=== PATIENT | male | born 1955 | race Caucasian/White ===

== ENCOUNTER → 2016-08-28 | Outpatient (CLI) | payer OTHER ==
[2016-08-28 14:49] LABS: CALCIUM 9.3 mg/dl (8.5-10.1)
[2016-08-28 14:50] LABS: ALT/SGPT 28 U/L (12-78); BLOOD UREA NITROGEN 19 mg/dl (7-18); BUN/CREATININE RATIO 13.6 (10-20); CARBON DIOXIDE 26 mmol/L (21-32); CHLORIDE 105 mmol/L (98-107); GLUCOSE 138 mg/dl (70-99); POTASSIUM 4.4 mmol/L (3.5-5.1); SODIUM 140 mmol/L (136-145)
[2016-08-28 14:52] LABS: CHOLESTEROL 187 mg/dl (0-200); CHOLESTEROL/HDL RATIO 6.2; HDL CHOLESTEROL 30 mg/dl; TRIGLYCERIDES 296 mg/dl (0-150); VERY LOW DENSITY LIPOPROT CALC 59 mg/dl
== END | disposition home or self-care (01) ==
LOC: C.LABMFLN 07:12
PROVIDERS: ATTEND Family Medicine
DX: E78.00 Pure hypercholesterolemia, unspecified (principal)

== ENCOUNTER → 2016-10-05 | Outpatient (CLI) | payer BC | END | disposition home or self-care (01) | LOC: C.LABMFLN 10:31 | PROVIDERS: ATTEND Family Medicine | DX: M1A.9XX0 Chronic gout, unspecified, without tophus (tophi) (principal) ==

== ENCOUNTER → 2017-02-12 | Outpatient (CLI) | payer BC ==
[2017-02-12 13:14] LABS: ESTIMATED AVERAGE GLUCOSE 120 mg/dl; HA1C FLAG Normal (Normal)
[2017-02-12 13:26] LABS: BLOOD UREA NITROGEN 16 mg/dl (7-18); BUN/CREATININE RATIO 13.6 (10-20); CALCIUM 9.3 mg/dl (8.5-10.1); CARBON DIOXIDE 24 mmol/L (21-32); CHLORIDE 103 mmol/L (98-107); CREATININE 1.18 mg/dl (0.60-1.40); GLUCOSE 119 mg/dl (70-99); POTASSIUM 4.1 mmol/L (3.5-5.1); SODIUM 136 mmol/L (136-145); URIC ACID 3.3 mg/dl (2.6-7.2)
[2017-02-12 16:18] LABS: ALT/SGPT 25 U/L (12-78); CHOLESTEROL 178 mg/dl (0-200); CHOLESTEROL/HDL RATIO 4.5; HDL CHOLESTEROL 40 mg/dl; TRIGLYCERIDES 174 mg/dl (0-150); VERY LOW DENSITY LIPOPROT CALC 35 mg/dl
== END | disposition home or self-care (01) ==
LOC: C.LABMFLN 08:13
PROVIDERS: ATTEND Family Medicine
DX: E78.00 Pure hypercholesterolemia, unspecified (principal); I10 Essential (primary) hypertension; M1A.9XX0 Chronic gout, unspecified, without tophus (tophi); R73.01 Impaired fasting glucose

== ENCOUNTER 2021-11-03 18:18 | Inpatient (IN) ==
[2021-11-03 19:08] LABS: Basophils # (auto) 0.06 K/uL (0-0.2); Basophils % (auto) 0.5 %; Eosinophils # (auto) 0.09 K/uL (0-0.50); Eosinophils % (auto) 0.7 %; Hematocrit (blood only) 49.7 % (40.1-51.0); Immature Granulocytes # (auto) 0.06 K/uL (0.00-0.02); Immature Granulocytes % (auto) 0.5 %; Lymphocytes # (auto) 1.34 K/uL (1.2-3.4); Lymphocytes % (auto) 10.9 %; Mean Corpuscular Hemoglobin 30.9 pg (25.0-34.0); Mean Corpuscular Hgb Conc 34.2 g/dL (32.0-36.0); Mean Corpuscular Volume 90.4 fL (80.0-100.0); Mean Platelet Volume 11.2 fL (9.4-12.4); Monocytes # (auto) 0.54 K/uL (0.24-0.82); Monocytes % (auto) 4.4 %; Neutrophils # (auto) 10.26 K/uL (1.4-6.5); Platelet Count 275 K/uL (130-400); RDW Coefficient of Variation 13.1 % (11.5-14.5); RDW Standard Deviation 43.1 fL (36.4-46.3); White Blood Count 12.35 K/ul (4.8-10.8)
[2021-11-03] MEDS ORDERED: ONDANSETRON INJ 2 MG/ML 2 ML VIAL IV STA (19:19)
[2021-11-03 19:27] LABS: Albumin Globulin Ratio 1.4 (0.9-2); Albumin Level 4.8 gm/dl (3.4-5.0); BUN Creatinine Ratio 11.3 (10-20); Calcium 10.4 mg/dl (8.5-10.1); Creatinine Clr Calc Pharmacy 62.2 ml/min; Est GFR (African American) 59.7 ml/min; Est GFR (Non-African American) 51.5 ml/min; Globulin 3.4 gm/dl (2.5-4.0); Potassium 4.6 mmol/L (3.5-5.1); Total Protein 8.2 gm/dl (6.0-8.3)
[2021-11-03] MEDS ORDERED: SODIUM CHLORIDE 0.9% 1000ML 1,000 ML IV ONE (21:10)
[2021-11-03] MEDS ORDERED: fentaNYL citrate 100 MCG/2 ML VIAL IV PRN (21:22)
[2021-11-03 21:23] LABS: Appearance Urine Clear (Clear); Bacteria Urine Automated Negative (Negative); Bilirubin Urine Negative (Negative); Blood Urine Negative (Negative); Color Urine Dark Yellow; Glucose Urine UA Negative (Negative); Ketones Urine 1+ (Negative); Leukocyte Esterase Urine Negative (Negative); Nitrite Urine Negative (Negative); Protein Urine 1+ (Negative); RBC Urine Automated 0-4 /hpf (0-4); Specific Gravity Urine 1.029 (1.000-1.030); Urobilinogen Urine Negative (Negative); pH Urine 5.5 (4.5-7.5)
--- NOTE | 2021-11-03 21:29 | Emergency Department Note ---
Impression & Plan Partial obstruction of small intestine, Abdominal pain, Vomiting ED Provider Note NAME: SADIA BARROS AGE: 66 SEX: M : 1955 ARRIVES VIA: Walk-In INFORMANT: Patient, ED PROVIDER(S): Zackary Rodriguez DO CHIEF COMPLAINT: Abdominal pain HPI: Patient is a 66-year-old male who presented to the emergency department for an evaluation of abdominal pain. The patient states he has noticed abdominal pain over the course the last 2 to 3 days. Initially he noticed the pain is upper abdominal pain. He states the pain has started to go lower into his abdomen. He notices no fever. He notices no back pain or chest pain. He did note nausea as well as vomiting. After the emesis he did feel better. He denies having any recent trauma. He is not been seen by his family doctor as the symptoms only began over the last few days. The patient was given IV Zofran via protocol prior to my evaluation and states his symptoms are significantly improved. ROS: See above HPI for pertinent positives & negatives. A total of 10 systems reviewed and were otherwise negative. PAST MEDICAL HISTORY: See Below PAST SURGICAL HISTORY: See Below FAMILY HISTORY: See Below SOCIAL HISTORY: See Below HOME MEDICATIONS: See Below ALLERGIES: See Below VITALS: See Below PHYSICAL EXAMINATION: GENERAL: Patient is awake alert in no acute distress patient is resting comfortably and showing no signs of anxiety EYES: The conjunctivae are clear. The pupils are round and reactive. EARS, NOSE, MOUTH AND THROAT: The nose is without any evidence of any deformity. Mucous membranes are moist. Tongue is midline. NECK: The neck is nontender and supple. RESPIRATORY: Normal respiratory effort is noted there is no evidence of wheezing rhonchi or rales CARDIOVASCULAR: Regular rate and rhythm noted there no murmurs rubs or gallops normal S1 normal S2. GASTROINTESTINAL: Abdomen is distended. There is diffuse tenderness to palpation especially in the right lower quadrant. There is no guarding or rigidity. MUSCULOSKELETAL/EXTREMITIES: There is no evidence of gross deformity full range of motion is noted in the hips and shoulders. SKIN: There is no obvious evidence of any rash. There are no petechiae, pallor or cyanosis noted. NEUROLOGIC: Patient is awake alert and oriented x3 MEDICAL DECISION MAKING: Patient is a 66-year-old male who presented to the emergency department for an evaluation of abdominal pain. The patient had episodes of emesis which improved his abdominal pain. I discussed the patient's laboratory and radiographic studies with him. He was treated with IV fluids and IV pain medication in the emergency department. He was feeling much better on subsequent reevaluation. He has no surgical history but does have a history of diverticulitis in the past. He was treated with IV antibiotics. I discussed his condition with the on-call [facility] hospitalist group. They have agreed to evaluate the patient in the emergency department for further management and disposition. Triage Nursing notes reviewed. Prior medical records reviewed Vital Signs: reviewed and remarkable for no significant abnormalities Differential diagnosis: Etiologies such as appendicitis, diverticulitis, obstruction, inflammatory bowel disease, renal colic, PUD, biliary pathology, pancreatitis, mesenteric ischemia, aortic pathology, infections, genitourinary, UTI, perforated viscus, as well as others were entertained. ER treatment provided: See below Diagnostics interpreted by me: ECG: KG was obtained in the emergency department. My interpretation is sinus rhythm at 69 bpm. PVCs were noted. There was no acute ST segment abnormalities noted. No previous tracing was available. Cardiac Monitoring: An order was placed for continuous cardiac monitoring. The monitor shows a rate of 83 bpm with sinus rhythm. Laboratory studies: As stated above and show below. Imaging studies: See below Consultation(s): Dr. Roman was notified about the patient. He will evaluate the patient in the emergency department. Past Med/Surg History Medical History AC (acromioclavicular) joint arthritis Anxiety Borderline diabetes Chronic gout Diverticular disease Gout Hyperlipidemia Hypertension Kidney stones PASSED Osteoarthritis Sigmoid diverticulitis Surgical History History of colonoscopy (~2013) History of tooth extraction Hx of toe surgery 40 YRS AGO Family History Mother Diabetes Grandmother (Paternal) Diabetes Grandmother (Maternal) Diabetes Father Esophageal cancer Social History Smoking Status: Never smoker Second Hand Exposure: Yes ( KID); Hx Alcohol Use: Yes Alcohol type: beer, wine and hard liquor Hx Substance Use: No Preferred Language: Citizen Of [place] Communication Ability: Effective Machine Splitter Required: No Beliefs That Will Affect Care: None Current Living Situation: Spouse Feels Safe at Home: Yes Assistive Devices: Glasses Allergies Allergies Allergy/AdvReac Type Severity Reaction Status Date / Time No Known Drug Allergies Allergy Verified 06/30/21 10:26 Home Meds Home Medications Medication Instructions Recorded Confirmed aspirin 81 mg tablet,delayed 81 mg PO QAM 01/09/19 10/26/21 release (Aspir-) Previous Rx's Medication Instructions Recorded losartan 25 mg tablet See Rx Instructions .Route 11/28/20 .COMPLEX #90 tabs tadalafil 20 mg tablet (Cialis) 20 mg PO .1 hour before sexual PRN 12/16/20 sexual activity #20 tabs sildenafil 100 mg tablet 100 mg PO DAILY PRN sexual 01/06/21 activity #10 tabs semaglutide 0.25 mg or 0.5 mg (2 0.5 mg (0.4 mL) subcut .once a 05/02/21 mg/1.5 mL) subcutaneous pen week #18 mL injector (Ozempic) allopurinol 100 mg tablet See Rx Instructions .Route 06/19/21 .COMPLEX #180 tabs sertraline 50 mg tablet 25 mg PO DAILY #90 tabs 06/19/21 atorvastatin 10 mg tablet 10 mg PO .every Mon,Wed and Fr #45 08/22/21 tabs Results & Data (ED) Vital Signs Vital Signs - 24 hr 11/03/21 18:28 11/03/21 21:07 11/03/21 22:52 Temperature 36.5 C 36.9 C Temperature Source Temporal Artery Scan Oral Pulse Rate 79 Pulse Rate [Apical] 75 83 Respiratory Rate 18 18 18 Respiratory Effort / Characteristics Non-Labored Spontaneous Non-Labored Spontaneous Non-Labored Spontaneous Respiratory Depth Normal Normal Normal Respiratory Pattern Regular Regular Regular Blood Pressure 134/78 Blood Pressure [Right Arm] 136/115 H 134/78 Blood Pressure Mean 96 Blood Pressure Mean [Right Arm] 122 96 Blood Pressure Position Sitting Blood Pressure Position [Right Arm] Semi-fowlers Pulse Oximetry 97 98 95 Oxygen Delivery Method Room Air Room Air Room Air Sepsis Recent Fever Within 48 Hours No Sepsis New/Unexplained Change in Mental Status No Sepsis Action Taken by Nursing No Action Required Home Medications Current Medication List: was personally reviewed by me Laboratory Data Attestation: I reviewed the patient's lab results. Result diagrams: 11/03/21 18:55 11/03/21 18:55 Lab Results 11/03/21 11/03/21 11/03/21 Range/Units 18:55 18:55 18:55 WBC 12.35 H (4.8-10.8) K/ul RBC 5.50 (4.63-6.08) M/uL Hgb 17.0 (14.0-18.0) g/dl Hct 49.7 (40.1-51.0) % MCV 90.4 (80.0-100.0) fL MCH 30.9 (25.0-34.0) pg MCHC 34.2 (32.0-36.0) g/dL RDW Std Deviation 43.1 (36.4-46.3) fL RDW Coeff of Heladio 13.1 (11.5-14.5) % Plt Count 275 (130-400) K/uL MPV 11.2 (9.4-12.4) fL Immature Gran % (Auto) 0.5 % Neut % (Auto) 83.0 % Lymph % (Auto) 10.9 % [place] % (Auto) 4.4 % Eos % (Auto) 0.7 % Baso % (Auto) 0.5 % Neut # (Auto) 10.26 H (1.4-6.5) K/uL Lymph # (Auto) 1.34 (1.2-3.4) K/uL [place] # (Auto) 0.54 (0.24-0.82) K/uL Eos # (Auto) 0.09 (0-0.50) K/uL Baso # (Auto) 0.06 (0-0.2) K/uL Immature Gran # (Auto) 0.06 H (0.00-0.02) K/uL Sodium 137 (136-145) mmol/L Potassium 4.6 (3.5-5.1) mmol/L Chloride 99 (98-107) mmol/L Carbon Dioxide 29 (21-32) mmol/L Anion Gap 9 (3-11) BUN 16 (6-23) mg/dl Creatinine 1.41 H (0.6-1.4) mg/dl Est Cr Clr Drug Dosing 62.2 ml/min Est GFR ( Amer) 59.7 ml/min Est GFR (Non-Af Amer) 51.5 ml/min BUN/Creatinine Ratio 11.3 (10-20) Glucose 149 H (70-99(Fasting)) mg/dl Calcium 10.4 H (8.5-10.1) mg/dl Total Bilirubin 1.0 (0.2-1.0) mg/dl AST 24 (13-39) U/L ALT 30 (7-52) U/L Alkaline Phosphatase 97 (34-104) U/L Troponin I High Sens 3.6 (0-20) pg/ml Total Protein 8.2 (6.0-8.3) gm/dl Albumin 4.8 (3.4-5.0) gm/dl Globulin 3.4 (2.5-4.0) gm/dl Albumin/Globulin Ratio 1.4 (0.9-2) Lipase 24 (11-82) U/L Urine Color Urine Appearance (Clear) Urine pH (4.5-7.5) Ur Specific [place] (1.000-1.030) Urine Protein (Negative) Urine Glucose (UA) (Negative) Urine Ketones (Negative) Urine Blood (Negative) Urine Nitrite (Negative) Urine Bilirubin (Negative) Urine Urobilinogen (Negative) Ur Leukocyte Esterase (Negative) Urine WBC (Auto) (0-5) /hpf Urine RBC (Auto) (0-4) /hpf U Hyaline Cast (Auto) (0-5) /lpf U Epithel Cells (Auto) (0-5) /lpf Urine Bacteria (Auto) (Negative) SARS-CoV-2, RNA, NAAT (NEGATIVE) 11/03/21 11/03/21 Range/Units 21:03 22:46 WBC (4.8-10.8) K/ul RBC (4.63-6.08) M/uL Hgb (14.0-18.0) g/dl Hct (40.1-51.0) % MCV (80.0-100.0) fL MCH (25.0-34.0) pg MCHC (32.0-36.0) g/dL RDW Std Deviation (36.4-46.3) fL RDW Coeff of Heladio (11.5-14.5) % Plt Count (130-400) K/uL MPV (9.4-12.4) fL Immature Gran % (Auto) % Neut % (Auto) % Lymph % (Auto) % [place] % (Auto) % Eos % (Auto) % Baso % (Auto) % Neut # (Auto) (1.4-6.5) K/uL Lymph # (Auto) (1.2-3.4) K/uL [place] # (Auto) (0.24-0.82) K/uL Eos # (Auto) (0-0.50) K/uL Baso # (Auto) (0-0.2) K/uL Immature Gran # (Auto) (0.00-0.02) K/uL Sodium (136-145) mmol/L Potassium (3.5-5.1) mmol/L Chloride (98-107) mmol/L Carbon Dioxide (21-32) mmol/L Anion Gap (3-11) BUN (6-23) mg/dl Creatinine (0.6-1.4) mg/dl Est Cr Clr Drug Dosing ml/min Est GFR ( Amer) ml/min Est GFR (Non-Af Amer) ml/min BUN/Creatinine Ratio (10-20) Glucose (70-99(Fasting)) mg/dl Calcium (8.5-10.1) mg/dl Total Bilirubin (0.2-1.0) mg/dl AST (13-39) U/L ALT (7-52) U/L Alkaline Phosphatase (34-104) U/L Troponin I High Sens (0-20) pg/ml Total Protein (6.0-8.3) gm/dl Albumin (3.4-5.0) gm/dl Globulin (2.5-4.0) gm/dl Albumin/Globulin Ratio (0.9-2) Lipase (11-82) U/L Urine Color Dark Yellow Urine Appearance Clear (Clear) Urine pH 5.5 (4.5-7.5) Ur Specific [place] 1.029 (1.000-1.030) Urine Protein 1+ H (Negative) Urine Glucose (UA) Negative (Negative) Urine Ketones 1+ H (Negative) Urine Blood Negative (Negative) Urine Nitrite Negative (Negative) Urine Bilirubin Negative (Negative) Urine Urobilinogen Negative (Negative) Ur Leukocyte Esterase Negative (Negative) Urine WBC (Auto) 1-5 (0-5) /hpf Urine RBC (Auto) 0-4 (0-4) /hpf U Hyaline Cast (Auto) 1-5 (0-5) /lpf U Epithel Cells (Auto) 5-10 H (0-5) /lpf Urine Bacteria (Auto) Negative (Negative) SARS-CoV-2, RNA, NAAT NEGATIVE (NEGATIVE) Administered Medications Discontinued Medications Sodium Chloride (Nss 1000ml) 1,000 mls @ 999 mls/hr IV .Q1H1M ONE Stop: 11/03/21 22:10 Last Infusion: 11/03/21 22:31 Dose: 0 mls/hr Documented By: Admin: 11/03/21 21:30 Dose: 999 mls/hr Documented By: [facility] Piperacillin Sod/Tazobactam Sod (Zosyn) 4.5 gm in 120 mls @ 240 mls/hr IV NOW ONE Stop: 11/03/21 23:26 Last Admin: 11/03/21 23:44 Dose: 240 mls/hr Documented By: [facility] Ioversol (Optiray 300 100ml) 94 ml IV ONCE ONE Stop: 11/03/21 21:57 Last Admin: 11/03/21 21:59 Dose: 94 ml Documented By: [facility] Ondansetron HCl (Ondansetron Inj 2 Mg/Ml 2 Ml Vial) 4 mg IV NOW STA Stop: 11/03/21 19:20 Last Admin: 11/03/21 19:23 Dose: 4 mg [place]ed [place]: [facility] [place] Data Radiologist's Impression: Abdomen/Pelvis CT 11/03/21 21:22 CT abd pelvis IV con only CLINICAL HISTORY: lower pain TECHNIQUE: Helical axial images of the abdomen and pelvis were obtained and displayed. Automated dose lowering techniques and/or adjustment according to patient size were utilized for this exam. This exam was performed with intravenous contrast. CT DOSE: 1205.76 mGy.cm COMPARISON: None available at the time of this dictation. FINDINGS: Lower chest: Bibasilar atelectasis versus scarring is seen. Liver: Unremarkable. No focal lesions are seen. Gallbladder and biliary tree: No calcified gallstones. Normal caliber wall. No intra- or extrahepatic biliary ductal dilation. Pancreas: Unremarkable, no focal lesions. Spleen: Unremarkable. Adrenals: Unremarkable. Kidneys and ureters: There is a right renal cyst. Bladder: Unremarkable. Reproductive organs: Unremarkable. Bowel: Diverticulosis is seen without evidence of diverticulitis. The ileum and colon is under distended. The appendix is normal. Multiple dilated loops of sm all bowel are seen measuring up to 33 mm in diameter. There is prominent vascularity noted. No sharp transition point is seen. Lymph nodes Retroperitoneal: Unremarkable. Pelvic: Unremarkable. Mesenteric: Unremarkable. Peritoneum: Normal. Vessels: Mild atherosclerotic calcifications are seen. Abdominal wall: Bilateral fat-containing inguinal hernias are seen. Bones: Degenerative changes in the visualized spine. Prominent bone spur is noted in the left hip joint. IMPRESSION: Dilated loops of bowel in the left lower quadrant with vascular prominence, but without sharp transition points. The colon and ileum are under distended. Findings with partial small bowel obstruction. ACT 112: Negative or not required by law. Electronically signed by: Benedict Schumacher M.D. 11/03/2021 10:29 PM Discharge Plan Visit Data Chief Complaint: Abdominal Pain Stated Complaint: ABDOMINAL PAIN ED Provider: Zackary Rodriguez Discharge Problem: Partial obstruction of small intestine, Abdominal pain, Vomiting Patient Disposition: Being Evaluated by Hospitalist Forms Stand Alone Forms: [facility] Prescriptions Prescriptions: No Action losartan 25 mg tablet See Rx Instructions .ROUTE .COMPLEX Qty: 90 3RF Dose Instruction: TAKE 1 TABLET DAILY Rx Instructions: TAKE 1 TABLET DAILY sildenafil 100 mg tablet 100 mg PO DAILY PRN (Reason: sexual activity) Qty: 10 2RF Rx Instructions: administer 30 minutes to 4 hours before activity Ozempic 0.25 mg or 0.5 mg(2 mg/1.5 mL) pen injector 0.5 mg subcut .once a week Qty: 18 2RF Rx Instructions: 0.4 ml SQ weekly sertraline 50 mg tablet 25 mg PO DAILY Qty: 90 1RF allopurinol 100 mg tablet See Rx Instructions .ROUTE .COMPLEX Qty: 180 3RF Dose Instruction: TAKE 2 TABLETS (200 MG) EVERY MORNING Rx Instructions: TAKE 2 TABLETS (200 MG) EVERY MORNING atorvastatin 10 mg tablet 10 mg PO .every Mon,Wed and Fr Qty: 45 3RF tadalafil [Cialis] 20 mg tablet 20 mg PO .1 hour before sexual PRN (Reason: sexual activity) Qty: 20 2RF Rx Instructions: administer approximately 30min before sexual activity; do not use more than 1 dose per 24hrs Pneumovax-23 25 mcg/0.5 mL syringe 0.5 ml IM ONCE Qty: 0.5 0RF aspirin [Aspir-81] 81 mg Tablet,Delayed Release (Dr/Ec) 81 mg PO QAM Referrals Referrals: Julio Olson MD [Primary Care Provider] -
[2021-11-03] MEDS ORDERED: OPTIRAY 300 100mL IV ONE (21:56)
--- NOTE | 2021-11-03 22:31 | CT Scan Report ---
CT abd pelvis IV con only CLINICAL HISTORY: lower pain TECHNIQUE: Helical axial images of the abdomen and pelvis were obtained and displayed. Automated dose lowering techniques and/or adjustment according to patient size were utilized for this exam. This e xam was performed with intravenous contrast. CT DOSE: 1205.76 mGy.cm COMPARISON: None available at the time of this dictation. FINDINGS: Lower chest: Bibasilar atelectasis versus scarring is seen. Liver: Unremarkable. No focal lesions are seen. Gallbladder and biliary tree: No calcified gallstones. Normal caliber wall. No intra- or extrahepatic biliary ductal dilation. Pancreas: Unremarkable, no focal lesions. Spleen: Unremarkable. Adrenals: Unremarkable. Kidneys and ureters: There is a right renal cyst. Bladder: Unremarkable. Reproductive organs: Unremarkable. Bowel: Diverticulosis is seen without evidence of diverticulitis. The ileum and colon is under disten ded. The appendix is normal. Multiple dilated loops of small bowel are seen measuring up to 33 mm in diameter. There is prominent vascularity noted. No sharp transition point is seen. Lymph nodes Retroperitoneal: Unremarkable. Pelvic: Unremarkable. Mesenteric: Unremarkable. Peritoneum: Normal. Vessels: Mild atherosclerotic calcifications are seen. Abdominal wall: Bilateral fat-containing inguinal hernias are seen. Bones: Degenerative changes in the visualized spine. Prominent bone spur is noted in the left hip jillian nt. IMPRESSION: Dilated loops of bowel in the left lower quadrant with vascular prominence, but without sharp transit ion points. The colon and ileum are under distended. Findings with partial small bowel obstruction. ACT 112: Negative or not required by law. Electronically signed by: Benedict Schumacher M.D. 11/03/2021 10:29 PM
[2021-11-03] MEDS ORDERED: PIPERACILLIN/TAZOBACTAM 4.5 GM/120 ML BAG IV ONE (22:57)
--- NOTE | 2021-11-03 23:40 | History & Physical Report ---
Date of Service November 03, 2021 Assessment & Plan (1) Partial obstruction of small intestine: Plan: 66 y/o male w/ PMHx of DM2, HLD, CKD3, HTN who presents w/ mid to lower abd pain since 2 days ago, most likely from partial SBO. - no prior hx of surgeries - has had diverticulitis x2 in past. no evidence of this on current CT abd - NPO for now, advance diet as tolerated - received dose of IV Zosyn in ED; no indication to continue at this time (2) Diabetes mellitus: Plan: -06/29/21 a1c 6.5 - hold home Ozempic (recieves every Saturday) - check BSG achs, but defer ordering insulin as patient A1c appears well controlled and he is only on Ozempic (previous week's injection still active) (3) CKD stage 3 due to type 2 diabetes mellitus: Plan: - chronic, stable, follow bmp. avoid nephrotoxic agents (4) Anxiety and depression: Plan: - chronic, stable, continue home sertraline (5) Benign essential hypertension: Plan: - chronic, stable, continue home losartan (6) HLD (hyperlipidemia): Plan: - chronic, stable, continue home atorvastatin 10 (7) Severe obstructive sleep apnea: Plan: - continue home cpap qhs 11cm h2o (8) Itching: Plan: - mild, resolved. provided 1 dose of PO benadryl. not considering true allergy to Zosyn. Plan FEN/GI: NPO. No IV fluids ordered. ppx: Lovenox code: full dispo: med tele History of Present Illness Chief Complaint: SBO Primary Care Provider: Julio Olson MD 66 y/o male w/ PMHx of DM2, HLD, CKD3, HTN who presents w/ mid to lower abd pain since 2 days ago. Intermittent, minutes apart and would come in waves. Worse in evening. This AM, felt ok. Ate small breakfast. Had pains all afternoon after a big lunch. Had emesis x1, w/o relief of the pain. Had another episode of emesis in the ED waiting room. Currently, pain level 1.5/10, much improved from earlier. Denies hx of similar. States had diverticulitis x2 in past, treated as outpatient. Denies hx of abd surgeries. Intermittent chills. No fever. No chest pain, SOB. Mild constipation x 2-3 days, more straining and decreased amount. Had large BM 2 days ago. + mildly increased burping. No flatus x few days. ED course: 1L NSS. Zosyn. wbc 12.35. Hb stable 17.0. BMP ok. Cr 1.41, at ba seline. Ca 10.4H. UA w/o suggestion of infection. ecg rate 69 w/ freq pvcs. qtc 409. ct abd/pelv IV con: Dilated loops of bowel in the left lower quadrant with vascular prominence, but without sharp transition points. The colon and ileum are under distended. Findings with partial small bowel obstruction. Allergies Allergy/AdvReac Type Severity Reaction Status Date / Time No Known Drug Allergies Allergy Verified 06/30/21 10:26 Home Medications Medication Instructions Recorded Confirmed Type aspirin 81 mg tablet,delayed 81 mg PO QAM 01/09/19 10/26/21 History release (Aspir-) losartan 25 mg tablet See Rx Instructions .Route 11/28/20 10/26/21 Rx .COMPLEX #90 tabs tadalafil 20 mg tablet (Cialis) 20 mg PO .1 hour before sexual PRN 12/16/20 10/26/21 Rx sexual activity #20 tabs sildenafil 100 mg tablet 100 mg PO DAILY PRN sexual 01/06/21 10/26/21 Rx activity #10 tabs semaglutide 0.25 mg or 0.5 mg (2 0.5 mg (0.4 mL) subcut .once a 05/02/21 10/26/21 Rx mg/1.5 mL) subcutaneous pen week #18 mL injector (Ozempic) allopurinol 100 mg tablet See Rx Instructions .Route 06/19/21 10/26/21 Rx .COMPLEX #180 tabs sertraline 50 mg tablet 25 mg PO DAILY #90 tabs 06/19/21 10/26/21 Rx atorvastatin 10 mg tablet 10 mg PO .every Mon,Wed and Fr #45 08/22/21 10/26/21 Rx tabs Past Med/Surg History Medical History AC (acromioclavicular) joint arthritis Anxiety Borderline diabetes Chronic gout Diverticular disease Gout Hyperlipidemia Hypertension Kidney stones PASSED Osteoarthritis Sigmoid diverticulitis Surgical History History of colonoscopy (~2013) History of tooth extraction Hx of toe surgery 40 YRS AGO Family History Mother Diabetes Grandmother (Paternal) Diabetes Grandmother (Maternal) Diabetes Father Esophageal cancer Social History (Updated 11/04/21 @ 01:54 by Ferny Gage MD) Smoking Status: Never smoker Tobacco Type: Smokeless Tobacco (Dip or Chew) Number of Years Since Quit: 20; Second Hand Exposure: No; Do You Dip or Chew Tobacco: No; Tobacco Cessation Education Requested by Patient: No Hx Alcohol Use: Yes Alcohol type: beer Hx Substance Use: No Preferred Language: Bengali Communication Ability: Effective Supervisor Molding Required: No Beliefs That Will Affect Care: None Current Living Situation: Spouse and Family Other Information That Helps Us Care for You: No Feels Safe at Home: Yes Safety Concerns: Feels Safe At This Time Assistive Devices: CPAP and Glasses Review of Systems Review of Systems: All systems reviewed & are unremarkable except as noted in HPI & below Slight itch at extremities since starting abx. mild rash, resolved. Physical Exam Physical Exam: General: Grossly A&O. NAD. Cooperative. HEENT: Atraumatic, normocephalic. EOMI. No LAD. Pulm: CTAB. -wheezes, -rales, -rhonchi. No respiratory distress. Cardiac: RRR, -mrg. Radial pulses intact and symmetrical. No LE edema. Abdominal: Nondistended, soft. Mild ttp above umbilicus. Slightly hypoactive BS. Msk: all extrem. Integ: No visible rash. Results & Data Results & Data ([facility]) Vital Signs (Past 12 Hours) Vital Signs Temp Pulse Pulse Resp BP BP Pulse Ox 11/03/21 22:52 83 18 134/78 95 11/03/21 21:07 36.9 C 75 18 136/115 H 98 11/03/21 18:28 36.5 C 79 18 134/78 97 O2 Del Method 11/03/21 22:52 Room Air 11/03/21 21:07 Room Air 11/03/21 18:28 Room Air Laboratory Results Cardiac Enzymes 11/03/21 11/03/21 Range/Units 18:55 18:55 AST 24 (13-39) U/L Troponin I High Sens 3.6 (0-20) pg/ml CBC 11/03/21 Range/Units 18:55 WBC 12.35 H (4.8-10.8) K/ul RBC 5.50 (4.63-6.08) M/uL Hgb 17.0 (14.0-18.0) g/dl Hct 49.7 (40.1-51.0) % Plt Count 275 (130-400) K/uL Neut # (Auto) 10.26 H (1.4-6.5) K/uL Lymph # (Auto) 1.34 (1.2-3.4) K/uL [place] # (Auto) 0.54 (0.24-0.82) K/uL Eos # (Auto) 0.09 (0-0.50) K/uL Baso # (Auto) 0.06 (0-0.2) K/uL Comprehensive Metabolic Panel 11/03/21 Range/Units 18:55 Sodium 137 (136-145) mmol/L Potassium 4.6 (3.5-5.1) mmol/L Chloride 99 (98-107) mmol/L Carbon Dioxide 29 (21-32) mmol/L BUN 16 (6-23) mg/dl Creatinine 1.41 H (0.6-1.4) mg/dl Glucose 149 H (70-99(Fasting)) mg/dl Calcium 10.4 H (8.5-10.1) mg/dl AST 24 (13-39) U/L ALT 30 (7-52) U/L Alkaline Phosphatase 97 (34-104) U/L Total Protein 8.2 (6.0-8.3) gm/dl Albumin 4.8 (3.4-5.0) gm/dl Intake and Output 11/03/21 11/03/21 11/04/21 14:59 22:59 06:59 Intake Total 1000 / 1120 120 / 1120 Balance 1000 / 1120 120 / 1120 Intake: IV 1000 / 1120 120 / 1120 Piperacillin/Tazobactam 4.5 gm 120 / 120 In 120 ml @ 240 mls/hr IV NOW ONE Rx#:[id number] Sodium Chloride 0.9% 1000ML 1, 1000 / 1000 000 ml @ 999 mls/hr IV .Q1H1M ONE Rx#:[id number] Other: Weight 110.6 kg 110.4 kg Weight Measurement Method Chair Scale Standing Scale Patient Weight 11/04/21 06:59 Weight 110.4 kg Diagnostic Findings Abdomen/Pelvis CT 11/03/21 21:22 CT abd pelvis IV con only CLINICAL HISTORY: lower pain TECHNIQUE: Helical axial images of the abdomen and pelvis were obtained and displayed. Automated dose lowering techniques and/or adjustment according to patient size were utilized for this exam. This exam was performed with intravenous contrast. CT DOSE: 1205.76 mGy.cm COMPARISON: None available at the time of this dictation. FINDINGS: Lower chest: Bibasilar atelectasis versus scarring is seen. Liver: Unremarkable. No focal lesions are seen. Gallbladder and biliary tree: No calcified gallstones. Normal caliber wall. No intra- or extrahepatic biliary ductal dilation. Pancreas: Unremarkable, no focal lesions. Spleen: Unremarkable. Adrenals: Unremarkable. Kidneys and ureters: There is a right renal cyst. Bladder: Unremarkable. Reproductive organs: Unremarkable. Bowel: Diverticulosis is seen without evidence of diverticulitis. The ileum and colon is under distended. The appendix is normal. Multiple dilated loops of small bowel are seen measuring up to 33 mm in diameter. There is prominent vascularity noted. No sharp transition point is seen. Lymph nodes Retroperitoneal: Unremarkable. Pelvic: Unremarkable. Mesenteric: Unremarkable. Peritoneum: Normal. Vessels: Mild atherosclerotic calcifications are seen. Abdominal wall: Bilateral fat-containing inguinal hernias are seen. Bones: Degenerative changes in the visualized spine. Prominent bone spur is noted in the left hip joint. IMPRESSION: Dilated loops of bowel in the left lower quadrant with vascular prominence, but without sharp transition points. The colon and ileum are under distended. Findings with partial small bowel obstruction. ACT 112: Negative or not required by law. Electronically signed by: Benedict Schumacher M.D. 11/03/2021 10:29 PM Code Status & VTE Plan Code Status full VTE Prophylaxis Plan VTE Prophylaxis will be ordered: Yes Supervising Physician Co-Signing Physician Notes Attending addendum: I have physically seen this patient, have supervised the medical residents activities, and agree with the H&P unless as otherwise noted. Assessment and Plan: Partial small bowel obstruction- NPO IV fluids Zofran 4 mg IV every 6 hours as needed Zosyn 4.5 g IV every 8 hours Famotidine 20 mg IV every 12 hours Acetaminophen 1 g IV every 8 hours as needed mild pain or fever Morphine sulfate 4 mg IV every 3 hours as needed severe pain Surgical consult Diabetes mellitus- Hold Ozempic Placed on Accu-Cheks before meals and at bedtime/every 6 hours with NovoLog coverage per scale Check hemoglobin A1c Anxiety with depression- Resume sertraline after is able to take oral Hyperlipidemia- Resume atorvastatin once able to take p.o. Severe MONALISA- Continue CPAP at bedtime 11 cmH2O Remaining orders and notations as noted Resident Activity Tracking Resident Involvement: Resident Care Provided Care Provided: Adult Hospital Medicine
[2021-11-04] MEDS ORDERED: diphenhydrAMINE Capsule 25 MG CAP PO ONE (01:29)
[2021-11-04 06:17] LABS: Basophils # (auto) 0.04 K/uL (0-0.2); Basophils % (auto) 0.4 %; Eosinophils # (auto) 0.05 K/uL (0-0.50); Eosinophils % (auto) 0.5 %; Hematocrit (blood only) 43.9 % (40.1-51.0); Hemoglobin 15.2 g/dl (14.0-18.0); Immature Granulocytes # (auto) 0.06 K/uL (0.00-0.02); Immature Granulocytes % (auto) 0.6 %; Lymphocytes % (auto) 17.5 %; Mean Corpuscular Hemoglobin 31.3 pg (25.0-34.0); Mean Corpuscular Hgb Conc 34.6 g/dL (32.0-36.0); Mean Corpuscular Volume 90.3 fL (80.0-100.0); Mean Platelet Volume 10.9 fL (9.4-12.4); Monocytes # (auto) 0.68 K/uL (0.24-0.82); Monocytes % (auto) 6.6 %; Neutrophils # (auto) 7.64 K/uL (1.4-6.5); Neutrophils % (auto) 74.4 %; Platelet Count 261 K/uL (130-400); RDW Coefficient of Variation 13.2 % (11.5-14.5); RDW Standard Deviation 43.2 fL (36.4-46.3); Red Blood Count 4.86 M/uL (4.63-6.08); White Blood Count 10.27 K/ul (4.8-10.8)
[2021-11-04 06:40] LABS: Albumin Globulin Ratio 1.4 (0.9-2); BUN Creatinine Ratio 11.9 (10-20); Bilirubin,Total 1.3 mg/dl (0.2-1.0); Calcium 9.6 mg/dl (8.5-10.1); Creatinine Clr Calc Pharmacy 65.3 ml/min; Est GFR (African American) 63.5 ml/min; Est GFR (Non-African American) 54.8 ml/min; Globulin 2.9 gm/dl (2.5-4.0); Potassium 4.5 mmol/L (3.5-5.1); Total Protein 6.9 gm/dl (6.0-8.3)
[2021-11-04] MEDS ORDERED: ACETAMINOPHEN 1000 MG/100 ML IV IV PRN (07:15)
--- NOTE | 2021-11-04 07:20 | Electrocardiogram Report ---
Test Reason : Blood Pressure : / mmHG Vent. Rate : 069 BPM Atrial Rate : 069 BPM P-R Int : 168 ms QRS Dur : 090 ms QT Int : 382 ms P-R-T Axes : 031 060 058 degrees QTc Int : 409 ms Sinus rhythm with frequent Premature ventricular complexes Otherwise normal ECG No previous ECGs available Confirmed by Mitchell Bradshaw ([id number]) on 11/04/2021 7:20:30 AM Referred By: REFERRED SELF Confirmed By:Jeff Bradshaw
[2021-11-04] MEDS ORDERED: ACETAMINOPHEN 1,000 MG/100 ML VIAL IV PRN (07:30)
[2021-11-04] MEDS ORDERED: metroNIDAZOLE 500 MG/100 ML BAG IV SCH (07:45)
[2021-11-04] MEDS ORDERED: CEFEPIME 2,000 MG in SYRINGE 0 ML IV SCH (07:45)
[2021-11-04 07:56] LABS: Estimated Average Glucose 143 mg/dl; Hemoglobin A1C 6.6 % (4.5-5.6)
[2021-11-04] MEDS: allopurinoL 100 MG TAB PO SCH (09:32)
[2021-11-04] MEDS: ENOXAPARIN INJ 40 MG/0.4 ML SYR SQ SCH (09:32)
[2021-11-04] MEDS: SERTRALINE HCL 50 MG TABLET PO SCH (09:32)
[2021-11-04] MEDS: LOSARTAN POTASSIUM 25 MG TAB PO SCH (09:32)
[2021-11-04] MEDS: ASPIRIN 81 MG ECTAB PO SCH (09:32)
[2021-11-04] MEDS: POLYETHYLENE (MIRALAX) 17 GM PACK PO SCH (12:32)
--- NOTE | 2021-11-04 13:43 | Hospitalist Progress Note ---
Date of Service November 04, 2021 Assessment & Plan (1) Partial obstruction of small intestine: (2) Diabetes mellitus: (3) CKD stage 3 due to type 2 diabetes mellitus: (4) Anxiety and depression: (5) Benign essential hypertension: (6) HLD (hyperlipidemia): (7) Severe obstructive sleep apnea: (8) Itching: Admission and Anticipated Discharge Date Admission Date: November 03, 2021 Results & Data Results & Data ([facility]) Vital Signs (Past 12 Hours) Vital Signs Temp Pulse Pulse Resp BP Pulse Ox O2 Del Method 11/04/21 12:00 36.4 C L 60 18 101/69 94 Room Air 11/04/21 07:00 82 11/04/21 08:00 36.5 C 93 H 18 107/67 97 Room Air 11/04/21 03:59 36.8 C 78 16 120/68 95 Room Air 11/04/21 03:17 36.8 C 91 H 16 136/66 95 Room Air
--- NOTE | 2021-11-04 13:47 | Hospitalist Progress Note ---
Date of Service November 04, 2021 Assessment & Plan (1) Partial obstruction of small intestine: Plan: 66 y/o male w/ PMHx of DM2, HLD, CKD3, HTN who presents w/ mid to lower abd pain since 2 days ago, most likely from partial SBO. Small bowel obstruction, improving - no prior hx of surgeries - CT-A: Dilated loops of bowel in the left lower quadrant with vascular prominence, but without sharp transition points. The colon and ileum are under distended. Findings with partial small bowel obstruction. 2 past episodes of diverticulitis, no evidence of diverticulitis on CT Received IV Zosyn in the ER, further antibiotics deferred Patient clinically improved and passing flatus today. Will advance diet to clears. If doing well full liquids tonight, and may be able to further advance diet tomorrow and progress towards discharge if continuing to do (2) Diabetes mellitus: Plan: -06/29/21 a1c 6.5 - hold home Ozempic (recieves every Saturday) - check BSG achs, but defer ordering insulin as patient A1c is 6.6, well controlled and he is only on Ozempic (previous week's injection still active) (3) CKD stage 3 due to type 2 diabetes mellitus: Plan: - chronic, stable, follow bmp. avoid nephrotoxic agents (4) Anxiety and depression: Plan: - chronic, stable, continue home sertraline (5) Benign essential hypertension: Plan: - chronic, stable, continue home losartan (6) HLD (hyperlipidemia): Plan: - chronic, stable, continue home atorvastatin 10 (7) Severe obstructive sleep apnea: Plan: - continue home cpap qhs 11cm h2o (8) Itching: Plan: - mild, resolved. provided 1 dose of PO benadryl. not considering true allergy to Zosyn. Plan FEN/GI: Clears, advance to full tonight ppx: Lovenox code: full dispo: med tele Admission and Anticipated Discharge Date Admission Date: November 03, 2021 Leeanne Newton is seen at the bedside today. He reports he feels better than yesterday, notes that he had had several days of some mild abdominal discomfort which worsened day of admission. He reports he has continued to pass flatus, and was having at least 1 soft to firm bowel movement per day but that in the last day or 2 has had to strain more than normal. At time bedside assessment he reports his pain has been greatly improved overnight, and is a 1/10. Would like to advance his diet if possible. No nausea, vomiting, diarrhea, fever, chills, sweats, chest pain, chest pressure. No BM yet today but has been passing gas Review of Systems Review of Systems: All systems reviewed & are unremarkable except as noted in Subjective Physical Exam Physical Exam: General: A&Ox3. NAD. Cooperative. HEENT: Atraumatic, normocephalic. Patient and hearing grossly intact Pulm: CTAB A&P. -wheezes, -rales, -rhonchi. Symmetrical chest rise. No increase in work of breathing. No respiratory distress. Cardiac: RRR, -mrg. Radial pulses intact and symmetrical. Abdominal: Trace central abdominal tenderness without rebound, guarding, rigidity. Bowel sounds are appreciated Results & Data Results & Data ([facility]) Vital Signs (Past 12 Hours) Vital Signs Temp Pulse Pulse Resp BP Pulse Ox O2 Del Method 11/04/21 12:00 36.4 C L 60 18 101/69 94 Room Air 11/04/21 07:00 82 11/04/21 08:00 36.5 C 93 H 18 107/67 97 Room Air 11/04/21 03:59 36.8 C 78 16 120/68 95 Room Air 11/04/21 03:17 36.8 C 91 H 16 136/66 95 Room Air PG Care Time/CCT Total # of Minutes Spent Total Time Spent with Patient: Total time spent is greater than 50% in coordination of care (as documented) at patient's floor/unit and/or counseling patient: Coding Level of Care Code 28893 Subseq Hosp Care Lvl 2 Diagnoses Partial obstruction of small intestine K56.600 Diabetes mellitus E11.9 CKD stage 3 due to type 2 diabetes mellitus E11.22; N18.30 Anxiety and depression F41.9; F32.9 Benign essential hypertension I10 HLD (hyperlipidemia) E78.5 Severe obstructive sleep apnea G47.33 Itching L29.9
--- NOTE | 2021-11-05 01:49 | Billing Data ---
Date of Service November 05, 2021 Coding Level of Care Code 72728 Initial Inpt Care Lvl 3
[2021-11-05 05:57] LABS: Basophils # (auto) 0.05 K/uL (0-0.2); Basophils % (auto) 0.7 %; Eosinophils # (auto) 0.24 K/uL (0-0.50); Eosinophils % (auto) 3.5 %; Hemoglobin 13.6 g/dl (14.0-18.0); Immature Granulocytes # (auto) 0.03 K/uL (0.00-0.02); Immature Granulocytes % (auto) 0.4 %; Lymphocytes # (auto) 2.45 K/uL (1.2-3.4); Lymphocytes % (auto) 35.8 %; Mean Corpuscular Hemoglobin 31.3 pg (25.0-34.0); Monocytes # (auto) 0.49 K/uL (0.24-0.82); Monocytes % (auto) 7.2 %; Neutrophils # (auto) 3.59 K/uL (1.4-6.5); Neutrophils % (auto) 52.4 %; Platelet Count 219 K/uL (130-400); RDW Standard Deviation 44.1 fL (36.4-46.3); Red Blood Count 4.35 M/uL (4.63-6.08); White Blood Count 6.85 K/ul (4.8-10.8)
[2021-11-05 06:28] LABS: BUN Creatinine Ratio 10.9 (10-20); Calcium 9.2 mg/dl (8.5-10.1); Creatinine Clr Calc Pharmacy 59.1 ml/min; Est GFR (African American) 56.8 ml/min; Potassium 4.5 mmol/L (3.5-5.1)
[2021-11-05] MEDS: LOSARTAN POTASSIUM 25 MG TAB PO SCH (09:14)
[2021-11-05] MEDS: allopurinoL 100 MG TAB PO SCH (09:14)
[2021-11-05] MEDS: ASPIRIN 81 MG ECTAB PO SCH (09:14)
[2021-11-05] MEDS: ENOXAPARIN INJ 40 MG/0.4 ML SYR SQ SCH (09:15)
[2021-11-05] MEDS: SERTRALINE HCL 50 MG TABLET PO SCH (09:15)
[2021-11-05] MEDS: POLYETHYLENE (MIRALAX) 17 GM PACK PO SCH (09:15)
[2021-11-05] MEDS ORDERED: SIMETHICONE 80 MG CHEW PO PRN (10:45)
[2021-11-05] MEDS ORDERED: SIMETHICONE 80 MG CHEW PO SCH (16:30)
--- NOTE | 2021-11-05 16:57 | Billing Data ---
Date of Service November 05, 2021 Coding Level of Care Code D/C DAY MANAGEMENT >30 MINS
--- NOTE | 2021-11-05 17:01 | Discharge Summary ---
Date of Service November 05, 2021 Admission HPI Per Admitting Provider 66 y/o male w/ PMHx of DM2, HLD, CKD3, HTN who presents w/ mid to lower abd pain since 2 days ago. Intermittent, minutes apart and would come in waves. Worse in evening. This AM, felt ok. Ate small breakfast. Had pains all afternoon after a big lunch. Had emesis x1, w/o relief of the pain. Had another episode of emesis in the ED waiting room. Currently, pain level 1.5/10, much improved from earlier. Denies hx of similar. States had diverticulitis x2 in past, treated as outpatient. Denies hx of abd surgeries. Intermittent chills. No fever. No chest pain, SOB. Mild constipation x 2-3 days, more straining and decreased amount. Had large BM 2 days ago. + mildly increased burping. No flatus x few days. ED course: 1L NSS. Zosyn. wbc 12.35. Hb stable 17.0. BMP ok. Cr 1.41, at baseline. Ca 10.4H. UA w/o suggestion of infection. ecg rate 69 w/ freq pvcs. qtc 409. ct abd/pelv IV con: Dilated loops of bowel in the left lower quadrant with vascular prominence, but without sharp transition points. The colon and ileum are under distended. Findings with partial small bowel obstruction. Principal Diagnosis Partial SBO Discharge Exam General: AOx3. NAD. Cooperative. HEENT: NCAT. Pulm: CTAB. -wheezes, -rales, -rhonchi. Symmetrical chest rise. No increase in work of breathing. No respiratory distress. Cardiac: RRR, -mrg. Radial pulses intact and symmetrical. Abdominal: Mild upper abdominal discomfort without rebound, guarding, rigidity. Bowel sounds are appreciated Discharge Data Allergies Allergy/AdvReac Type Severity Reaction Status Date / Time No Known Drug Allergies Allergy Verified 06/30/21 10:26 Consultations 11/04/21 00:04 ED Decision to Admit Stat Ordered Studies Laboratory Results WBC 6.85 K/ul (4.8-10.8) 11/05/21 05:36 RBC 4.35 M/uL (4.63-6.08) L 11/05/21 05:36 Hgb 13.6 g/dl (14.0-18.0) L 11/05/21 05:36 Hct 40.0 % (40.1-51.0) L 11/05/21 05:36 MCV 92.0 fL (80.0-100.0) 11/05/21 05:36 MCH 31.3 pg (25.0-34.0) 11/05/21 05:36 MCHC 34.0 g/dL (32.0-36.0) 11/05/21 05:36 RDW Std Deviation 44.1 fL (36.4-46.3) 11/05/21 05:36 RDW Coeff of Heladio 13.0 % (11.5-14.5) 11/05/21 05:36 Plt Count 219 K/uL (130-400) 11/05/21 05:36 MPV 11.0 fL (9.4-12.4) 11/05/21 05:36 Immature Gran % (Auto) 0.4 % 11/05/21 05:36 Neut % (Auto) 52.4 % 11/05/21 05:36 Lymph % (Auto) 35.8 % 11/05/21 05:36 [place] % (Auto) 7.2 % 11/05/21 05:36 Eos % (Auto) 3.5 % 11/05/21 05:36 Baso % (Auto) 0.7 % 11/05/21 05:36 Neut # (Auto) 3.59 K/uL (1.4-6.5) 11/05/21 05:36 Lymph # (Auto) 2.45 K/uL (1.2-3.4) 11/05/21 05:36 [place] # (Auto) 0.49 K/uL (0.24-0.82) 11/05/21 05:36 Eos # (Auto) 0.24 K/uL (0-0.50) 11/05/21 05:36 Baso # (Auto) 0.05 K/uL (0-0.2) 11/05/21 05:36 Immature Gran # (Auto) 0.03 K/uL (0.00-0.02) H 11/05/21 05:36 Sodium 135 mmol/L (136-145) L 11/05/21 05:36 Potassium 4.5 mmol/L (3.5-5.1) 11/05/21 05:36 Chloride 101 mmol/L (98-107) 11/05/21 05:36 Carbon Dioxide 30 mmol/L (21-32) 11/05/21 05:36 Anion Gap 4 (3-11) 11/05/21 05:36 BUN 16 mg/dl (6-23) 11/05/21 05:36 Creatinine 1.47 mg/dl (0.6-1.4) H 11/05/21 05:36 Est Cr Clr Drug Dosing 59.1 ml/min 11/05/21 05:36 Est GFR ( Amer) 56.8 ml/min 11/05/21 05:36 Est GFR (Non-Af Amer) 49.0 ml/min 11/05/21 05:36 BUN/Creatinine Ratio 10.9 (10-20) 11/05/21 05:36 Glucose 117 mg/dl (70-99(Fasting)) H 11/05/21 05:36 POC Glucose 126 mg/dl (70-99) H 11/04/21 19:51 Estimat Average Glucose 143 mg/dl 11/04/21 06:05 Hemoglobin A1c 6.6 % (4.5-5.6) H 11/04/21 06:05 Calcium 9.2 mg/dl (8.5-10.1) 11/05/21 05:36 Total Bilirubin 1.3 mg/dl (0.2-1.0) H 11/04/21 06:05 AST 24 U/L (13-39) 11/04/21 06:05 ALT 26 U/L (7-52) 11/04/21 06:05 Alkaline Phosphatase 77 U/L (34-104) 11/04/21 06:05 Troponin I High Sens 3.6 pg/ml (0-20) 11/03/21 18:55 Total Protein 6.9 gm/dl (6.0-8.3) 11/04/21 06:05 Albumin 4.0 gm/dl (3.4-5.0) 11/04/21 06:05 Globulin 2.9 gm/dl (2.5-4.0) 11/04/21 06:05 Albumin/Globulin Ratio 1.4 (0.9-2) 11/04/21 06:05 Lipase 24 U/L (11-82) 11/03/21 18:55 Urine Color Dark Yellow 11/03/21 21:03 Urine Appearance Clear (Clear) 11/03/21 21:03 Urine pH 5.5 (4.5-7.5) 11/03/21 21:03 Ur Specific [place] 1.029 (1.000-1.030) 11/03/21 21:03 Urine Protein 1+ (Negative) H 11/03/21 21:03 Urine Glucose (UA) Negative (Negative) 11/03/21 21:03 Urine Ketones 1+ (Negative) H 11/03/21 21:03 Urine Blood Negative (Negative) 11/03/21 21:03 Urine Nitrite Negative (Negative) 11/03/21 21:03 Urine Bilirubin Negative (Negative) 11/03/21 21:03 Urine Urobilinogen Negative (Negative) 11/03/21 21:03 Ur Leukocyte Esterase Negative (Negative) 11/03/21 21:03 Urine WBC (Auto) 1-5 /hpf (0-5) 11/03/21 21:03 Urine RBC (Auto) 0-4 /hpf (0-4) 11/03/21 21:03 U Hyaline Cast (Auto) 1-5 /lpf (0-5) 11/03/21 21:03 U Epithel Cells (Auto) 5-10 /lpf (0-5) H 11/03/21 21:03 Urine Bacteria (Auto) Negative (Negative) 11/03/21 21:03 SARS-CoV-2, RNA, NAAT NEGATIVE (NEGATIVE) 11/03/21 22:46 Impressions Abdomen/Pelvis CT 11/03/21 21:22 CT abd pelvis IV con only CLINICAL HISTORY: lower pain TECHNIQUE: Helical axial images of the abdomen and pelvis were obtained and displayed. Automated dose lowering techniques and/or adjustment according to patient size were utilized for this exam. This exam was performed with intravenous contrast. CT DOSE: 1205.76 mGy.cm COMPARISON: None available at the time of this dictation. FINDINGS: Lower chest: Bibasilar atelectasis versus scarring is seen. Liver: Unremarkable. No focal lesions are seen. Gallbladder and biliary tree: No calcified gallstones. Normal caliber wall. No intra- or extrahepatic biliary ductal dilation. Pancreas: Unremarkable, no focal lesions. Spleen: Unremarkable. Adrenals: Unremarkable. Kidneys and ureters: There is a right renal cyst. Bladder: Unremarkable. Reproductive organs: Unremarkable. Bowel: Diverticulosis is seen without evidence of diverticulitis. The ileum and colon is under distended. The appendix is normal. Multiple dilated loops of small bowel are seen measuring up to 33 mm in diameter. There is prominent vascularity noted. No sharp transition point is seen. Lymph nodes Retroperitoneal: Unremarkable. Pelvic: Unremarkable. Mesenteric: Unremarkable. Peritoneum: Normal. Vessels: Mild atherosclerotic calcifications are seen. Abdominal wall: Bilateral fat-containing inguinal hernias are seen. Bones: Degenerative changes in the visualized spine. Prominent bone spur is noted in the left hip joint. IMPRESSION: Dilated loops of bowel in the left lower quadrant with vascular prominence, but without sharp transition points. The colon and ileum are under distended. Findings with partial small bowel obstruction. ACT 112: Negative or not required by law. Electronically signed by: Benedict Schumacher M.D. 11/03/2021 10:29 PM Hospital Course (1) Partial obstruction of small intestine: 66 yo male with PMHx of DM2, HLD, CKD3, HTN who presented with mid to lower abd pain x2 days, most likely from partial SBO. Partial Small bowel obstruction, improving - no prior hx of surgeries - CT abd/pelv:Dilated loops of bowel in the left lower quadrant with vascular prominence, but without sharp transition points. The colon and ileum are under distended. Findings with partial small bowel obstruction. 2 past episodes of diverticulitis, no evidence of diverticulitis on CT Received IV Zosyn in the ER, further antibiotics deferred Patient clinically improved and passing flatus. Tolerated regular diet with minimal discomfort. No pain medication given in hospital. - Continue to ease into regular diet at home. For pain can use tylenol. Miralax daily for the next few days. Gas-x prn. - f/u pcp Diabetes mellitus - 06/29/21 a1c 6.5 - cont. home ozempic CKD stage 3 due to type 2 diabetes mellitus - chronic, stable, follow bmp. avoid nephrotoxic agents Anxiety and depression - chronic, stable, continue home sertraline Benign essential hypertension - chronic, stable, continue home losartan HLD (hyperlipidemia) - chronic, stable, continue home atorvastatin 10 Severe obstructive sleep apnea - continue home cpap qhs 11cm h2o Itching - mild, resolved. provided 1 dose of PO benadryl. not considering true allergy to Zosyn. (2) Diabetes mellitus: (3) CKD stage 3 due to type 2 diabetes mellitus: (4) Anxiety and depression: (5) Benign essential hypertension: (6) HLD (hyperlipidemia): (7) Severe obstructive sleep apnea: (8) Itching: Total Time Total Time Spent Total Time Spent (In Minutes): >30 Discharge Plan Discharge Items Patient Disposition: Home - Self-Care Reason For Visit: SBO Discharge Diagnosis: Partial Small Bowel Obstruction Activity: Per Instructions section Non-emergency contact: Primary Care Provider Call non-emergency contact if: you have any medication questions and your symptoms worsen Follow-up/Referrals: Julio Olson MD [Primary Care Provider] - Diet: Carb Consistent or DM2 Addtl Attending Provider Instructions: You were admitted to the hospital with findings consistent of a partial small bowel obstruction. We treated you with bowel rest and advancing your diet as tolerated. In the hospital you do not need any pain medications as your pain was fairly well controlled. We were able to get you back to a regular diet with minimal pain. With that being said you can take this process as slow as you would like, just like you have in the past with diverticulitis. For pain relief, I would recommend Tylenol. If you are unable to tolerate a regular diet I would then take a step back to full liquids such as thicker broths and then advance over time. Watch out for things such as increased abdominal pain and fever as this may indicate diverticulitis especially since you have had bouts of that in the past. For symptomatic relief you can get Gas-X [id number]. You may also use MiraLAX daily for the next few days to assist with bowel movements. Please follow-up with your primary care provider within the next week just to make sure everything is going well and to answer any further questions you may have. Pending Studies at Discharge: No Stand-Alone Forms: My [facility] WebNotes Medications and DC Order Prescriptions: Continued losartan 25 mg tablet See Rx Instructions .ROUTE .COMPLEX Qty: 90 3RF Dose Instruction: TAKE 1 TABLET DAILY Rx Instructions: TAKE 1 TABLET DAILY sildenafil 100 mg tablet 100 mg PO DAILY PRN (Reason: sexual activity) Qty: 10 2RF Rx Instructions: administer 30 minutes to 4 hours before activity Ozempic 0.25 mg or 0.5 mg(2 mg/1.5 mL) pen injector 0.5 mg subcut .once a week Qty: 18 2RF Rx Instructions: 0.4 ml SQ weekly sertraline 50 mg tablet 25 mg PO DAILY Qty: 90 1RF allopurinol 100 mg tablet See Rx Instructions .ROUTE .COMPLEX Qty: 180 3RF Dose Instruction: TAKE 2 TABLETS (200 MG) EVERY MORNING Rx Instructions: TAKE 2 TABLETS (200 MG) EVERY MORNING atorvastatin 10 mg tablet 10 mg PO .every Mon,Wed and Fr Qty: 45 3RF tadalafil [Cialis] 20 mg tablet 20 mg PO .1 hour before sexual PRN (Reason: sexual activity) Qty: 20 2RF Rx Instructions: administer approximately 30min before sexual activity; do not use more than 1 dose per 24hrs Pneumovax-23 25 mcg/0.5 mL syringe 0.5 ml IM ONCE Qty: 0.5 0RF aspirin [Aspir-81] 81 mg Tablet,Delayed Release (Dr/Ec) 81 mg PO QAM Discharge Orders: Discharge Order (Routine); Ordered 11/05/21 Ordered By: Kyle Bird/Other Patient Handouts: Small Bowel Obstruction, Managing Type 2 Diabetes Admission Data Admit Date/Time: 11/03/21 23:59 Attending Provider: Everton Tellez Admit Provider: Ferny Gage Primary Care Provider: Julio Olson Other Providers: Deni Fink Other Interventions: Discharge Summary Assessment (RN) Last Done: 11/05/21 17:47 Supervising Physician Co-Signing Physician Notes Patient seen and examined, chart reviewed, case discussed with Kyle Irwin, and I agree with the assessment and plan as above except as otherwise noted Labs and images reviewed At bedside assessment patient reports he feels well today. Has tolerated full liquids, is still passing flatus, and has had a small bowel movement. Abdomen feels a little bloated, but overall okay. Discussed various options. Patient aggressive diet over the afternoon was tolerating full diet for dinner and still having flatus and bowel movements and no pain. Comfortable discharge home and outpatient follow-up. Agree with above. Resident Activity Tracking Resident Involvement: Resident Care Provided Care Provided: Adult [facility]
[2021-11-06] MEDS ORDERED: ATORVASTATIN 10 MG TAB PO SCH (09:00)
== END 2021-11-05 18:23 | disposition home or self-care (01) | DRG 390 ==
LOC: ED 18:18 → 4W 23:59 → SUATTDRO 23:59 → 4W 11-04 00:13